=== PATIENT | female | born 1970 | race Two or more races ===

== ENCOUNTER 2020-04-05 12:32 | Emergency (ER) | payer OTHER ==
[~2020-04-05] VITALS: Ht 165.1 cm; Wt 79.4 kg
[2020-04-05] MEDS ORDERED: ACETAMINOPHEN ES 500 MG TABLET ONE (12:50)
--- NOTE | 2020-04-05 12:50 | NUR ---
HERNAN FROM WORK. TO ER BED 16. AAOX4. NOT IN RESP DISTRESS. BROUGHT IN FOR R ANKLE PAIN. PER PT, SHE HAS WALKING AND CUAUGHT HER SELF ON A SMALL STEP CAUING HER AN INVERSION INJURY ON HER ANKLE. PAIN IS 8/10 NOTED SWELLING. PEDAL PULSE APPRECIATED. WELL SENSATION. WAS AT THE BEDSIDE FOR EVAL. ORDERS RECEIVED NOTED AND CARRIED OUT.
[2020-04-05] MEDS ORDERED: ACETAMINOPHEN ES 500 MG TABLET PO ONE (13:00)
[2020-04-05] MEDS ORDERED: MORPHINE SULFATE INJ 4 MG/ML DISP.SYRIN ONE (13:20)
[2020-04-05] MEDS ORDERED: ONDANSETRON HCL/PF 4 MG/2 ML VIAL ONE (13:20)
[2020-04-05] MEDS ORDERED: ONDANSETRON HCL/PF - ER 4 MG/2 ML VIAL IV ONE (13:30)
[2020-04-05] MEDS ORDERED: MORPHINE SULFATE INJ 2 MG/ML DISP.SYRIN IV ONE (13:30)
--- NOTE | 2020-04-05 14:22 | NUR ---
CALLED [facility] TO INITIATE TRANSFER
[2020-04-05] MEDS ORDERED: HYDROMORPHONE 1 MG/1 ML DISP.SYRIN ONE ×2 (14:43→16:12)
[2020-04-05] MEDS ORDERED: HYDROMORPHONE INJ 0.5 MG/0.5 ML SYRINGE IV ONE ×2 (15:00→16:30)
--- NOTE | 2020-04-05 15:46 | NUR ---
PT STILL COMPLAINING OF R ANKLE PAIN. MADE AWARE. AWAITING ORDERS
--- NOTE | 2020-04-05 15:46 | NUR ---
Darwni brush in ED - 04/05/20 at 1548 by LOCO PT COMPLAINED OF R KNEE PAIN. MADE AWARE. AWAITING ORDERS
[2020-04-05 15:47] VITALS: BP 120/74
--- NOTE | 2020-04-05 16:08 | NUR ---
TRANSFER INFO FROM CHARLY RN:[phone] [facility] Arash GOSS. REPORT TO [phone] ETA [phone]
--- NOTE | 2020-04-05 16:27 | NUR ---
REPORT GIVEN TP FARIBA JACOBS AT THE [facility].
--- NOTE | 2020-04-05 17:25 | NUR ---
AMBULANCE AT BEDSIDE FOR PT TRANSPORT TO [facility]. REPORT GIVEN TO AMBULANCE STAFF. PT IS IN STABLE CONDITION. NAD NOTED.
== END 2020-04-05 17:29 | disposition short-term general hospital (02) ==
LOC: ER 12:36
DX: S92.131A Displaced fracture of posterior process of right talus, initial encounter for closed fracture (principal); Z85.42 Personal history of malignant neoplasm of other parts of uterus; Z98.890 Other specified postprocedural states; W01.0XXA Fall on same level from slipping, tripping and stumbling without subsequent striking against object, initial encounter; Y93.01 Activity, walking, marching and hiking; Y92.218 Other school as the place of occurrence of the external cause; Y99.8 Other external cause status
CPT/HCPCS: 29515; 73610; 96374; 96375; 96376; 99285; J1170 ×2; J2270; J2405 ×2